=== PATIENT | female | born 1985 | race Hispanic/Latino ===

== ENCOUNTER 2016-05-23 10:09 | Outpatient (CLI) | payer OTHER ==
[2016-05-23 11:25] LABS: #Lymphocytes 1.6 thou/uL (1.20-3.40); #Monocytes 0.7 thou/uL (0.11-0.59); #Neutrophils 8.3 thou/uL (1.40-6.50); %Basophils 0.3 % (0.0-1.0); %Eosinophils 0.2 % (0.0-10.0); %Lymphocytes 14.9 % (21.0-51.0); %Monocytes 6.4 % (0.0-10.0); %Neutrophils 78.1 % (42.0-75.0); Mean Corpuscular HGB CONC 33.2 g/dL (32.0-36.0); Mean Corpuscular Hemoglobin 31.9 pg (27.0-31.0); Mean Corpuscular Volume 96.1 fl (81.0-99.0); Mean Platelet Volume 7.5 fL (7.4-10.4); Platelet Count 237 thou/uL (130-400); RBC Distribution Width 12.3 % (11.5-14.5); Red Blood Cell (RBC) Count 3.76 mill/uL (4.20-5.40); White Blood Cell (WBC) Count 10.6 thou/uL (4.8-10.8)
[2016-05-23 18:58] LABS: HIV (1/2) Antibody/Antigen Non-Reactive (NonReactive); HIV 1/2 INDEX 0.16 S/CO (<1.00)
== END 2016-05-23 10:10 | disposition home or self-care (01) ==
LOC: MADLABBHPM 10:09
PROVIDERS: ATTEND Family Medicine
DX: O09.892 Supervision of other high risk pregnancies, second trimester (principal)
CPT/HCPCS: 36415; 82950; 85025; 86592; 87389

== ENCOUNTER 2021-04-02 09:16 | Emergency (ER) | payer OTHER ==
[2021-04-02 19:29] LABS: SARS-CoV-2 PCR by NAA DETECTED (NotDetected)
== END 2021-04-02 09:59 | disposition home or self-care (01) ==
LOC: MADERS 09:16
DX: U07.1 COVID-19 (principal); J06.9 Acute upper respiratory infection, unspecified
CPT/HCPCS: 99283; U0003; U0005